=== PATIENT | male | born 1975 | race Caucasian/White ===

== ENCOUNTER 2018-05-07 06:43 | Day surgery (SDC) | payer OTHER, MEDICARE, MEDICAID ==
[~2018-05-07] VITALS: Ht 152.4 cm; Wt 70.0 kg
[~2018-05-07 06:43] MED LIST: BENZ1TAB10 PO; CLON-570 PO; FOLI-74 PO; FOLI1TAB15 PO; LAMO200T PO; LORA10TA60 PO; RINGERS SOLUTION,LACTATED 1,000 ML IV ONE; TRIL8 PO; ZOLP5TAB2 PO
[2018-05-07] MEDS ORDERED: FentaNYL CITRATE-PF 100 MCG/2 ML VIAL IVP ONE (06:44)
[2018-05-07] MEDS ORDERED: KETAMINE HCL 50 MG/ML 10 ML VIAL IVP ONE (06:44)
[2018-05-07] MEDS ORDERED: OXYMETAZOLINE HCL 0.05% 15 ML NASAL SPRAY NASAL ONE (07:24)
[2018-05-07] MEDS ORDERED: AMPICILLIN SODIUM 1 GM/VIAL ONE (09:04)
[2018-05-07] MEDS ORDERED: RINGERS SOLUTION,LACTATED 1,000 ML IV ONE (09:12)
[2018-05-07] MEDS ORDERED: CLINDAMYCIN PHOS 150 MG/ML 4 ML VIAL ONE (10:41)
[2018-05-07] MEDS ORDERED: SODIUM CHLORIDE 0.9% 100 ML ONE (11:09)
[2018-05-07] MEDS ORDERED: LIDOCAINE/PF 2% 5 ML VIAL INJ ONE (12:00)
[2018-05-07] MEDS ORDERED: PROPOFOL 1% 20 ML VIAL IVP ONE (12:00)
[2018-05-07] MEDS ORDERED: ONDANSETRON HCL 4 MG/2 ML VIAL IVP ONE (12:00)
== END 2018-05-07 13:36 | disposition short-term general hospital (02) ==
LOC: SURGERY 06:43
PROVIDERS: ATTEND Dentist General Practice
DX: K05.30 Chronic periodontitis, unspecified (principal); K03.6 Deposits [accretions] on teeth; F41.8 Other specified anxiety disorders; Q90.9 Down syndrome, unspecified; F31.89 Other bipolar disorder; J30.89 Other allergic rhinitis; E66.01 Morbid (severe) obesity due to excess calories; G47.33 Obstructive sleep apnea (adult) (pediatric); G40.909 Epilepsy, unspecified, not intractable, without status epilepticus; F95.2 Tourette's disorder; F78 Other intellectual disabilities; Z68.30 Body mass index [BMI] 30.0-30.9, adult; Z88.0 Allergy status to penicillin; Z79.899 Other long term (current) drug therapy
CPT/HCPCS: 41899; J2405; J2704; J3010; J3490 ×3; J7050; J7120; J0290

== ENCOUNTER 2019-09-11 05:54 | Day surgery (SDC) | payer OTHER, MEDICARE, MEDICAID ==
[~2019-09-11] VITALS: Ht 152.4 cm; Wt 70.0 kg
[~2019-09-11 05:54] MED LIST changes: +CLON-441 PO; -CLON-570 PO
[2019-09-11] MEDS ORDERED: FentaNYL CITRATE-PF 100 MCG/2 ML VIAL IVP ONE (05:55)
[2019-09-11] MEDS ORDERED: SUCCINYLCHOLINE CHLORIDE 20 MG/ML 10 ML VIAL IVP ONE (05:55)
[2019-09-11] MEDS ORDERED: ONDANSETRON HCL 4 MG/2 ML VIAL IVP ONE (05:55)
[2019-09-11] MEDS ORDERED: KETAMINE HCL 50 MG/ML 10 ML VIAL IVP ONE (05:55)
[2019-09-11] MEDS ORDERED: EPHEDrine SULFATE 50 MG/ML VIAL IM ONE (05:55)
[2019-09-11] MEDS ORDERED: PROPOFOL 1% 20 ML VIAL IVP ONE (05:55)
[2019-09-11] MEDS ORDERED: RINGERS SOLUTION,LACTATED 1,000 ML IV ONE (07:00)
[2019-09-11] MEDS ORDERED: CLINDAMYCIN PHOS 150 MG/ML 4 ML VIAL ONE (07:21)
[2019-09-11] MEDS ORDERED: SODIUM CHLORIDE 0.9% 100 ML ONE (07:22)
[2019-09-11 07:29] LABS: BASOPHILS % (AUTO) 2.9 % (0.0-2.0); EOSINOPHILS % (AUTO) 2.3 % (1.0-6.0); HEMATOCRIT 41.1 % (41-53); HEMOGLOBIN 13.7 g/dL (13.5-17.5); LYMPHOCYTES # (AUTO) 1.7 K/uL (1.0-4.8); LYMPHOCYTES % (AUTO) 32.9 % (22.0-44.0); MEAN CORPUSCULAR HEMOGLOBIN 29.4 pg (26.0-34.0); MEAN CORPUSCULAR HGB CONC 33.2 G/dL (31.0-37.0); MEAN CORPUSCULAR VOLUME 89 fL (80-100); MONOCYTES # (AUTO) 0.4 K/uL (0.1-1.0); MONOCYTES % (AUTO) 8.2 % (2.0-9.0); NEUTROPHILS # (AUTO) 2.8 K/uL (1.8-7.7); NEUTROPHILS % (AUTO) 53.7 % (40.0-70.0); PLATELET COUNT (AUTO) 283 K/uL (150-450); RED BLOOD CELL COUNT(AUTO) 4.64 MIL/uL (4.50-5.90); RED CELL DISTRIBUTION WIDTH 14.6 % (11.5-14.5)
[2019-09-11 07:42] LABS: PROTHROMBIN TIME 10.6 SEC (9.4-11.6)
[2019-09-11 07:50] LABS: ANION GAP 5 mmol/L (8-16); CALCIUM, TOTAL 9.5 mg/dL (8.8-10.5); CARBON DIOXIDE 30 mmol/L (22-29); CHLORIDE 105 mmol/L (98-107); CREATININE 1.14 mg/dL (0.60-1.30); GLOMERULAR FILTR. RATE CALC > 60 mL/min (>60); GLUCOSE,RANDOM 83 mg/dL (70-110); POTASSIUM 4.6 mmol/L (3.5-5.1); SODIUM SERUM 140 mmol/L (136-145); UREA NITROGEN, BLOOD 11 mg/dL (7-18)
[2019-09-11] MEDS ORDERED: MIDAZOLAM HCL 5 MG/ML VIAL ONE (10:00)
== END 2019-09-11 13:30 | disposition home or self-care (01) ==
LOC: SURGERY 05:54
PROVIDERS: ATTEND Dentist General Practice
DX: K02.9 Dental caries, unspecified (principal); K05.30 Chronic periodontitis, unspecified; K03.89 Other specified diseases of hard tissues of teeth; F41.9 Anxiety disorder, unspecified; G40.909 Epilepsy, unspecified, not intractable, without status epilepticus; Z79.899 Other long term (current) drug therapy; Z79.01 Long term (current) use of anticoagulants
CPT/HCPCS: 36415; 41899; 71045; 80048; 85025; 85610; 85730; 93005; J0330; J2250; J2405; J2704; J3010; J3490 ×3; J7050; J7120

== ENCOUNTER 2021-03-31 06:15 | Day surgery (SDC) | payer OTHER, MEDICARE, MEDICAID ==
[~2021-03-31] VITALS: Ht 152.4 cm; Wt 75.5 kg
[2021-03-31] MEDS ORDERED: RINGERS SOLUTION,LACTATED 1,000 ML IV ONE (06:30)
[2021-03-31 07:12] LABS: COVID AG,FIA SOURCE NASOPHARYNGEAL
[2021-03-31] MEDS ORDERED: CLINDAMYCIN 600 MG/D5% WATER 50 ML IV ONE (07:30)
[2021-03-31 08:44] LABS: BASOPHILS % (AUTO) 0.8 % (0.0-2.0); EOSINOPHILS % (AUTO) 2.1 % (1.0-6.0); HEMATOCRIT 45.5 % (41-53); HEMOGLOBIN 14.9 g/dL (13.5-17.5); LYMPHOCYTES # (AUTO) 1.5 K/uL (1.0-4.8); LYMPHOCYTES % (AUTO) 26.6 % (22.0-44.0); MEAN CORPUSCULAR HEMOGLOBIN 29.1 pg (26.0-34.0); MEAN CORPUSCULAR HGB CONC 32.8 G/dL (31.0-37.0); MEAN CORPUSCULAR VOLUME 89 fL (80-100); MONOCYTES # (AUTO) 0.5 K/uL (0.1-1.0); MONOCYTES % (AUTO) 8.8 % (2.0-9.0); NEUTROPHILS # (AUTO) 3.5 K/uL (1.8-7.7); NEUTROPHILS % (AUTO) 61.7 % (40.0-70.0); PLATELET COUNT (AUTO) 293 K/uL (150-450); RED BLOOD CELL COUNT(AUTO) 5.13 MIL/uL (4.50-5.90); RED CELL DISTRIBUTION WIDTH 14.7 % (11.5-14.5)
[2021-03-31 08:51] LABS: ANION GAP 7 mmol/L (8-16); CALCIUM, TOTAL 8.3 mg/dL (8.8-10.5); CARBON DIOXIDE 29 mmol/L (22-29); CHLORIDE 105 mmol/L (98-107); CREATININE 1.14 mg/dL (0.60-1.30); GLOMERULAR FILTR. RATE CALC > 60 mL/min (>60); GLUCOSE,RANDOM 94 mg/dL (70-110); POTASSIUM 4.4 mmol/L (3.5-5.1); SODIUM SERUM 141 mmol/L (136-145); UREA NITROGEN, BLOOD 18 mg/dL (7-18)
[2021-03-31 08:53] LABS: PROTHROMBIN TIME 10.5 SEC (9.4-11.6)
[2021-03-31 08:56] LABS: ALANINE AMINOTRANSFERASE 38 U/L (12-78); ALBUMIN 3.3 g/dL (3.4-5.0); ALKALINE PHOSPHATASE 119 U/L (46-116); ASPARTATE AMINOTRANSFERASE 18 U/L (15-37); BILIRUBIN,TOTAL 0.2 mg/dL (0.1-1.0); TOTAL PROTEIN, SERUM 7.1 g/dL (6.4-8.2)
[2021-03-31] MEDS ORDERED: LIDOCAINE/PF 2% 5 ML VIAL IM ONE (12:00)
[2021-03-31] MEDS ORDERED: FentaNYL CITRATE PF 100 MCG/2 ML VIAL IVP ONE (12:00)
[2021-03-31] MEDS ORDERED: ROCURONIUM BROMIDE 10 MG/ML 5 ML VIAL IVP ONE (12:00)
[2021-03-31] MEDS ORDERED: ONDANSETRON HCL 4 MG/2 ML VIAL IVP ONE (12:00)
[2021-03-31] MEDS ORDERED: KETAMINE HCL 50 MG/ML 10 ML VIAL IVP ONE (12:00)
[2021-03-31] MEDS ORDERED: DEXAMETHASONE SOD PHOS 4 MG/ML VIAL IVP ONE (12:00)
[2021-03-31] MEDS ORDERED: PROPOFOL 1% 20 ML VIAL IVP ONE (12:00)
== END 2021-03-31 15:10 | disposition home or self-care (01) ==
LOC: SURGERY 06:15
PROVIDERS: ATTEND Dentist General Practice
DX: K02.9 Dental caries, unspecified (principal); K05.30 Chronic periodontitis, unspecified; K00.7 Teething syndrome; E66.3 Overweight; Q90.9 Down syndrome, unspecified; G40.909 Epilepsy, unspecified, not intractable, without status epilepticus; F41.9 Anxiety disorder, unspecified; K59.00 Constipation, unspecified; Z88.2 Allergy status to sulfonamides; Z88.6 Allergy status to analgesic agent; Z79.899 Other long term (current) drug therapy; Z98.890 Other specified postprocedural states; Z88.0 Allergy status to penicillin; Z88.1 Allergy status to other antibiotic agents; Z79.01 Long term (current) use of anticoagulants
CPT/HCPCS: 36415; 41899; 71045; 80053; 85025; 85610; 85730; 87426; 93005; C9803; J1100; J2405; J2704; J3010; J3490 ×4; J7120

== ENCOUNTER 2023-08-02 06:06 | Day surgery (SDC) | payer OTHER, MEDICARE, MEDICAID ==
[~2023-08-02] VITALS: Ht 152.4 cm; Wt 72.7 kg
[~2023-08-02 06:06] MED LIST changes: -BENZ1TAB10 PO; +BENZ1TAB84 PO; -RINGERS SOLUTION,LACTATED 1,000 ML IV ONE; -ZOLP5TAB2 PO
[2023-08-02] MEDS ORDERED: RINGERS SOLUTION,LACTATED 1,000 ML IV ONE ×2 (06:30→07:07)
[2023-08-02] MEDS ORDERED: CLINDAMYCIN 600 MG/D5% WATER 50 ML IV ONE (07:45)
[2023-08-02 07:52] LABS: BASOPHILS % (AUTO) 1.9 % (0.0-2.0); EOSINOPHILS % (AUTO) 1.5 % (1.0-6.0); HEMATOCRIT 40.8 % (41-53); HEMOGLOBIN 13.6 g/dL (13.5-17.5); LYMPHOCYTES # (AUTO) 1.7 K/uL (1.0-4.8); LYMPHOCYTES % (AUTO) 35.8 % (22.0-44.0); MEAN CORPUSCULAR HEMOGLOBIN 29.8 pg (26.0-34.0); MEAN CORPUSCULAR HGB CONC 33.4 G/dL (31.0-37.0); MEAN CORPUSCULAR VOLUME 89 fL (80-100); MONOCYTES # (AUTO) 0.5 K/uL (0.1-1.0); MONOCYTES % (AUTO) 10.1 % (2.0-9.0); NEUTROPHILS # (AUTO) 2.4 K/uL (1.8-7.7); NEUTROPHILS % (AUTO) 50.7 % (40.0-70.0); PLATELET COUNT (AUTO) 254 K/uL (150-450); RED BLOOD CELL COUNT(AUTO) 4.57 MIL/uL (4.50-5.90); RED CELL DISTRIBUTION WIDTH 14.2 % (11.5-14.5); WHITE BLOOD COUNT (AUTO) 4.8 K/uL (4.5-11.0)
[2023-08-02 08:07] LABS: PROTHROMBIN TIME 10.9 SEC (9.4-11.6)
[2023-08-02 08:10] LABS: ANION GAP 7 mmol/L (8-16); CALCIUM, TOTAL 8.6 mg/dL (8.8-10.5); CARBON DIOXIDE 31 mmol/L (22-29); CHLORIDE 103 mmol/L (98-107); CREATININE 1.03 mg/dL (0.60-1.30); GLOMERULAR FILTR. RATE CALC > 60 mL/min (>60); GLUCOSE,RANDOM 87 mg/dL (70-110); POTASSIUM 4.5 mmol/L (3.5-5.1); SODIUM SERUM 140 mmol/L (136-145); UREA NITROGEN, BLOOD 18 mg/dL (7-18)
[2023-08-02 08:16] LABS: ALANINE AMINOTRANSFERASE 36 U/L (12-78); ALBUMIN 3.3 g/dL (3.4-5.0); ALKALINE PHOSPHATASE 162 U/L (46-116); ASPARTATE AMINOTRANSFERASE 23 U/L (15-37); BILIRUBIN,TOTAL 0.2 mg/dL (0.1-1.0); TOTAL PROTEIN, SERUM 6.8 g/dL (6.4-8.2)
[2023-08-02 08:35] LABS: THYROID STIMULATING HORMONE 3.33 uIU/mL (0.36-3.74)
[2023-08-02] MEDS ORDERED: MIDAZOLAM HCL 2 MG/2 ML VIAL ONE (09:02)
[2023-08-02] MEDS ORDERED: PROPOFOL 1% 20 ML VIAL IVP ONE (12:00)
[2023-08-02] MEDS ORDERED: DEXAMETHASONE SOD PHOS 4 MG/ML VIAL IVP ONE (12:00)
[2023-08-02] MEDS ORDERED: ONDANSETRON HCL 4 MG/2 ML VIAL IVP ONE (12:00)
[2023-08-02] MEDS ORDERED: LIDOCAINE/PF 2% 5 ML VIAL IM ONE (12:00)
[2023-08-02] MEDS ORDERED: SUGAMMADEX SODIUM 200 MG/2 ML VIAL IVP ONE (12:00)
[2023-08-02] MEDS ORDERED: GLYCOPYRROLATE 0.2 MG/ML VIAL IM ONE (12:00)
== END 2023-08-02 10:55 | disposition home or self-care (01) ==
LOC: SURGERY 06:06
PROVIDERS: ATTEND Dentist General Practice
DX: K05.30 Chronic periodontitis, unspecified (principal); K02.9 Dental caries, unspecified; F41.9 Anxiety disorder, unspecified; G40.909 Epilepsy, unspecified, not intractable, without status epilepticus; K59.00 Constipation, unspecified; Z79.01 Long term (current) use of anticoagulants; Z79.899 Other long term (current) drug therapy
CPT/HCPCS: 41899; 71045; 80053; 83036; 84443; 85025; 85610; 85730; 36415; J2704; J3490 ×3; J1100; J2250; J2405; Q9967; J7120